=== PATIENT | female | born 1990 | race Caucasian/White ===

== ENCOUNTER 2019-07-27 12:36 | Observation (INO) | payer BC, MEDICAID ==
[~2019-07-27] VITALS: Ht 170.2 cm; Wt 113.9 kg
[2019-07-27 13:01] VITALS: BP 95/37
[2019-07-27 13:03] LABS: Basophils # (auto) 0.1 uL; Basophils % (auto) 0.7 % (0.0-2.0); Eosinophils # (auto) 0.1 uL; Eosinophils % (auto) 0.5 % (0.0-7.0); Hematocrit 38.7 % (36.0-46.0); Hemoglobin 13.1 g/dL (12.2-16.2); Lymphocytes # (auto) 2.5 uL; Lymphocytes % (auto) 20.2 % (10.0-50.0); Mean Corpuscular Hemoglobin 27.8 pg (28.0-32.0); Mean Corpuscular Hgb Conc. 33.9 g/dL (32.0-36.0); Mean Corpuscular Volume 81.9 fL (80.0-100.0); Monocytes # (auto) 0.7 uL; Monocytes % (auto) 5.6 % (0.0-12.0); Neutrophils # (auto) 9.1 uL; Nucleated Red Blood Cells % 0.1 %; Platelet Count (auto) 317 10^3/uL (140-450); Red Blood Cells 4.72 10^6/uL (4.0-5.20); White Blood Cell 12.5 10^3/uL (4.4-10.8)
[2019-07-27 13:24] LABS: Albumin 3.1 g/dL (3.4-5.0); BUN/Creatinine Ratio 8.6; Calcium 8.7 mg/dL (8.5-10.1); Potassium 3.6 mmol/L (3.5-5.1)
[2019-07-27 13:26] LABS: Bilirubin, Total 0.3 mg/dL (0.2-1.0); Total Protein 7.3 g/dL (6.4-8.2)
[2019-07-27] MEDS ORDERED: SODIUM CHLORIDE 0.9% 1,000 ML IV ONE (13:30)
[2019-07-27 14:12] LABS: INR < 0.93 (0.9-1.15); Partial Thromboplastin Time 27.7 sec (23.64-32.05)
== END 2019-07-27 15:25 | disposition left against medical advice (07) | DRG 833 ==
LOC: ER 12:36 → LDRP 14:10 → UNDOADMOB 14:26
PROVIDERS: ADMIT Obstetrics & Gynecology; ATTEND Obstetrics & Gynecology
DX: O20.0 Threatened abortion (principal); Z3A.18 18 weeks gestation of pregnancy
CPT/HCPCS: 36415; 59025; 76805; 80053; 84702; 85025; 85610; 85730; 99284; G0378; J7030

== ENCOUNTER 2019-08-13 20:05 | Inpatient (IN) | payer BC ==
[~2019-08-13] VITALS: Ht 167.6 cm; Wt 114.0 kg
[2019-08-13] MEDS ORDERED: SODIUM CHLORIDE 0.9% 1,000 ML IVB ONE (21:06)
[2019-08-13] MEDS ORDERED: ONDANSETRON HCL 4 MG/2 ML VIAL IV ONE (22:00)
[2019-08-13] MEDS ORDERED: MORPHINE SULF INJ 2 MG/ML SYRINGE 1ML IV ONE (22:00)
[2019-08-13 22:26] LABS: Basophils # (auto) 0 uL; Basophils % (auto) 0.3 % (0.0-2.0); Eosinophils # (auto) 0 uL; Eosinophils % (auto) 0.3 % (0.0-7.0); Hematocrit 32.9 % (36.0-46.0); Hemoglobin 10.4 g/dL (12.2-16.2); Lymphocytes # (auto) 1.9 uL; Lymphocytes % (auto) 12.9 % (10.0-50.0); Mean Corpuscular Hemoglobin 27.3 pg (28.0-32.0); Mean Corpuscular Hgb Conc. 31.4 g/dL (32.0-36.0); Mean Corpuscular Volume 86.8 fL (80.0-100.0); Monocytes # (auto) 0.7 uL; Monocytes % (auto) 4.9 % (0.0-12.0); Neutrophils # (auto) 11.9 uL; Neutrophils % (auto) 81.6 % (37.0-80.0); Platelet Count (auto) 404 10^3/uL (140-450); Red Blood Cells 3.79 10^6/uL (4.0-5.20); Red Cell Distribution Width 15.9 % (11.8-14.3); White Blood Cell 14.6 10^3/uL (4.4-10.8)
[2019-08-13 22:42] LABS: Albumin 3.4 g/dL (3.4-5.0); BUN/Creatinine Ratio 15.9; Calcium 7.9 mg/dL (8.5-10.1); Potassium 3.9 mmol/L (3.5-5.1)
[2019-08-13 22:45] LABS: Bilirubin, Total 0.5 mg/dL (0.2-1.0); Total Protein 7.2 g/dL (6.4-8.2)
[2019-08-13] MEDS ORDERED: fentaNYL CITRATE 100 MCG/2 ML VL IV ONE (23:45)
[2019-08-13] MEDS ORDERED: metroNIDAZOLE 500MG/100ML 100 ML IV ONE (23:45)
[2019-08-13] MEDS ORDERED: LEVOFLOXACIN 750MG 150 ML IV ONE (23:45)
[2019-08-14] MEDS ORDERED: ACETAMINOPHEN 325 MG TAB PO PRN (01:00)
[2019-08-14] MEDS ORDERED: ONDANSETRON HCL 4 MG/2 ML VIAL IV PRN (01:00)
[2019-08-14 02:56] LABS: Urine Bacteria NONE SEEN /hpf (None Seen); Urine Blood Negative /uL (Negative); Urine Specific Gravity 1.007 (1.001-1.035); Urine WBC 1 /hpf (0 - 5)
[2019-08-14 03:20] VITALS: BP 102/52
[2019-08-14] MEDS: metroNIDAZOLE 500MG/100ML 100 ML IV SCH ×3 (05:31→22:00)
--- NOTE | 2019-08-14 07:30 | NUR ---
Opening Shift Note Assumed care of patient, awake and alert. No S/S of distress/SOB or pain. Instructed on POC and to call for assist PRN, will continue to monitor for changes Q1hr and PRN.
[2019-08-14 08:00] VITALS: BP 117/66
[2019-08-14 09:21] VITALS: BP 117/66
[2019-08-14] MEDS: cefTRIAXone 1GM/50ML D5W 50 ML IV SCH (10:08)
[2019-08-14] MEDS: FAMOTIDINE 20 MG TAB PO SCH ×2 (10:08→22:00)
[2019-08-14 12:25] VITALS: BP 123/75
[2019-08-14] MEDS: SODIUM CHLORIDE 0.9% 1,000 ML IV SCH (13:57)
[2019-08-14 16:56] VITALS: BP 113/58
--- NOTE | 2019-08-14 19:30 | NUR ---
Assumed care of patient. Awake alert and oriented x4. Ambulatory. Very sweet and pleasant. Verbalized she is still proccessing her miscarriage and wants to go back to work to take her mind off of it..Iv to L Fa patent and infusing per orders. Skin clear. No distress noted.
[2019-08-14 22:25] VITALS: BP 119/74
[2019-08-14] MEDS: MORPHINE SULFATE 4 MG/ML SYR/VIAL IV PRN (23:40)
[2019-08-15] MEDS: TEMAZEPAM 15 MG CAP PO PRN ×2 (01:00→22:09)
--- NOTE | 2019-08-15 02:00 | NUR ---
IV to L FA removed due to causing pt pain. No inflammation noted. New IV started to L FA 20 G, tolerated well. Infusing per orders..Restoril given per pt request. No distress noted.
[2019-08-15 05:17] VITALS: BP 110/66
[2019-08-15] MEDS: metroNIDAZOLE 500MG/100ML 100 ML IV SCH ×3 (06:00→22:09)
[2019-08-15 06:25] LABS: Basophils # (auto) 0 uL; Basophils % (auto) 0.6 % (0.0-2.0); Eosinophils # (auto) 0.1 uL; Eosinophils % (auto) 2.2 % (0.0-7.0); Hemoglobin 9.8 g/dL (12.2-16.2); Lymphocytes # (auto) 2.5 uL; Lymphocytes % (auto) 41.4 % (10.0-50.0); Mean Corpuscular Hemoglobin 28.7 pg (28.0-32.0); Mean Corpuscular Hgb Conc. 32.8 g/dL (32.0-36.0); Mean Corpuscular Volume 87.5 fL (80.0-100.0); Monocytes # (auto) 0.3 uL; Monocytes % (auto) 4.9 % (0.0-12.0); Neutrophils # (auto) 3.1 uL; Neutrophils % (auto) 50.9 % (37.0-80.0); Nucleated Red Blood Cells % 0.1 %; Platelet Count (auto) 352 10^3/uL (140-450); Red Blood Cells 3.43 10^6/uL (4.0-5.20); White Blood Cell 6.1 10^3/uL (4.4-10.8)
[2019-08-15] MEDS: SODIUM CHLORIDE 0.9% 1,000 ML IV SCH (06:25)
[2019-08-15 06:35] LABS: Albumin 2.9 g/dL (3.4-5.0); Calcium 7.9 mg/dL (8.5-10.1); Magnesium 2.2 mg/dL (1.6-2.6); Potassium 3.6 mmol/L (3.5-5.1)
[2019-08-15 06:37] LABS: BUN/Creatinine Ratio 6.2
[2019-08-15 06:39] LABS: Bilirubin, Total 0.5 mg/dL (0.2-1.0); Total Protein 6.1 g/dL (6.4-8.2)
--- NOTE | 2019-08-15 07:40 | NUR ---
opening patient awake in bed, bed in lowest position, call light within reach no distress ntoed at this time
[2019-08-15] MEDS: cefTRIAXone 1GM/50ML D5W 50 ML IV SCH (09:00)
--- NOTE | 2019-08-15 09:00 | NUR ---
patient off unit for hida scan
[2019-08-15 09:15] VITALS: BP 100/52
[2019-08-15] MEDS: FAMOTIDINE 20 MG TAB PO SCH ×2 (10:00→22:09)
[2019-08-15 12:49] VITALS: BP 105/65
--- NOTE | 2019-08-15 13:07 | NUR ---
md lane rounding no new orders, awaiting surgical consult. The consult has been called to dr marte
[2019-08-15 14:33] LABS: Amylase 37 U/L (25-115); Lipase 171 U/L (73-393)
[2019-08-15 14:47] LABS: INR 0.95 (0.9-1.15)
--- NOTE | 2019-08-15 15:31 | NUR ---
Social Service consult regarding Advance Directive. Provided pt with information of Advance Directives and Durable Power of research attorney form. Pt verbalized understanding and refused information. Will contact Supervisor Packing for any further concerns or issues.
[2019-08-15 17:12] VITALS: BP 132/76
--- NOTE | 2019-08-15 17:30 | NUR ---
YONG CALLING WITH ORDERS CONSENT FOR LAP VS OPEN FR[place], CXR, EKG, URINE , TYPE AND SCREEN, PT/PTT LEVELS WILL PLACE ORDERS GIVEN, PER YONG HE WILL SPEAK TO PATIENT ABOUT PROCEDURE TOMORROW, AND SHE WILL BE ON SCHEDULE TOMORROW
[2019-08-15] MEDS: Ensure HIGH Protein Chocolate 8oz Bottle PO SCH (18:00)
[2019-08-15 19:10] LABS: INR 0.95 (0.9-1.15); Partial Thromboplastin Time 27.1 sec (23.64-32.05)
--- NOTE | 2019-08-15 19:11 | NUR ---
Opening Shift Note Assumed care of patient, awake and alert. No S/S of distress/SOB or pain. Instructed on POC and to call for assist PRN, will continue to monitor for changes Q1hr and PRN. Side rails up x2. Bed locked in lowest position. Call light within reach.
[2019-08-15 21:55] VITALS: BP 131/66
[2019-08-16] MEDS: SODIUM CHLORIDE 0.9% 1,000 ML IV SCH ×2 (03:22→15:45)
[2019-08-16 05:00] VITALS: BP 103/54
[2019-08-16] MEDS: metroNIDAZOLE 500MG/100ML 100 ML IV SCH ×3 (05:30→21:43)
[2019-08-16 06:29] LABS: Basophils # (auto) 0 uL; Basophils % (auto) 0.6 % (0.0-2.0); Eosinophils # (auto) 0.1 uL; Eosinophils % (auto) 1.8 % (0.0-7.0); Hematocrit 32.2 % (36.0-46.0); Hemoglobin 10.5 g/dL (12.2-16.2); Lymphocytes # (auto) 2.2 uL; Mean Corpuscular Hemoglobin 28.6 pg (28.0-32.0); Mean Corpuscular Hgb Conc. 32.7 g/dL (32.0-36.0); Mean Corpuscular Volume 87.3 fL (80.0-100.0); Monocytes # (auto) 0.3 uL; Monocytes % (auto) 4.8 % (0.0-12.0); Neutrophils # (auto) 3.4 uL; Neutrophils % (auto) 55.8 % (37.0-80.0); Nucleated Red Blood Cells % 0.1 %; Platelet Count (auto) 391 10^3/uL (140-450); Red Blood Cells 3.69 10^6/uL (4.0-5.20); Red Cell Distribution Width 15.7 % (11.8-14.3)
[2019-08-16 06:32] LABS: Potassium 3.3 mmol/L (3.5-5.1)
[2019-08-16 06:35] LABS: BUN/Creatinine Ratio 6.6
--- NOTE | 2019-08-16 07:21 | NUR ---
Endorsed care to day shift RN.
--- NOTE | 2019-08-16 07:43 | NUR ---
Opening Patient in bed, awake, bed in lowest position, call light within reach. No distress noted at this time. Will f/u with morning assessment. Pending today, physical therapy consult. Echocardiogram. Will continue to monitor this patient Addendum: 08/16/19 at 0746 by Rosemary Grullon RN Wrong patient Opening, this patient is awake, alert, oriented. In bed, bed is locked in lowest position, call light within reach. Has been NPO since midnight for the cholecystectomy with dr marte today. Will call preop around 8am to get estimated time for patient and family request. Checklist mostly done, consents are not signed per rosanna yesterday states he will speak with patient today prior to procedure. Will continue to monitor
[2019-08-16] MEDS: Ensure HIGH Protein Chocolate 8oz Bottle PO SCH ×3 (08:00→18:09)
[2019-08-16 08:11] VITALS: BP 107/62
[2019-08-16] MEDS: cefTRIAXone 1GM/50ML D5W 50 ML IV SCH (09:53)
[2019-08-16] MEDS: FAMOTIDINE 20 MG TAB PO SCH ×2 (09:53→21:43)
--- NOTE | 2019-08-16 12:00 | NUR ---
NUTRITION ASSESSMENT NOTES Please refer to link notes of nutrition screen form filed under the intervention section of the plan of care for further details. Est. Needs: 1650 kcal to 2250 kcal (15-20 kcal/kgBW), 59 gms to 71 gms pro (0.8-1.0 gms/kgBW). Will continue to monitor pertinent labs and reassess nutrient need prn Thank you. Addendum: 08/16/19 at [address] Amended: Links added.
[2019-08-16 12:31] VITALS: BP 118/73
--- NOTE | 2019-08-16 16:17 | NUR ---
MD FREEMAN ROUNDING NO NEW ORDERS, CONTINUING WITH PROCEDURE TOMORROW.
[2019-08-16 16:20] VITALS: BP 131/73
--- NOTE | 2019-08-16 18:00 | NUR ---
paging salbino per low potassium 3.3
--- NOTE | 2019-08-16 18:02 | NUR ---
nancy calling new orders for potassium given, will carry out as ordered.
[2019-08-16] MEDS ORDERED: POTASSIUM EFFERVESENT TAB 25 MEQ PO ONE (18:15)
[2019-08-16] MEDS: SOD CHL 0.9%/ KCL 20MEQ 1,000 ML IV SCH (18:33)
--- NOTE | 2019-08-16 19:30 | NUR ---
Opening Shift Note Assumed care of patient, awake and alert x4. Patient denies pain at this time. No S/S of distress or shortness of breath noted at this time. Instructed on plan of care and to call for assistance as needed. Bed is locked in lowest position, side rails x 2 are up, and call light is within reach.
[2019-08-16] MEDS: TEMAZEPAM 15 MG CAP PO PRN (21:43)
[2019-08-16 21:55] VITALS: BP 100/55
[2019-08-17 04:52] VITALS: BP 124/68
[2019-08-17] MEDS: MORPHINE SULFATE 4 MG/ML SYR/VIAL IV PRN ×2 (05:12→16:42)
[2019-08-17] MEDS: metroNIDAZOLE 500MG/100ML 100 ML IV SCH ×3 (05:12→22:12)
--- NOTE | 2019-08-17 05:27 | NUR ---
CHG BATH COMPLETED CHG bath and full linen change completed. Patient tolerated well. No S/S of distress noted at this time.
[2019-08-17 05:37] LABS: Basophils # (auto) 0 uL; Basophils % (auto) 0.9 % (0.0-2.0); Eosinophils # (auto) 0.1 uL; Eosinophils % (auto) 1.8 % (0.0-7.0); Hematocrit 32.1 % (36.0-46.0); Hemoglobin 10.4 g/dL (12.2-16.2); Lymphocytes # (auto) 2.1 uL; Lymphocytes % (auto) 39.1 % (10.0-50.0); Mean Corpuscular Hemoglobin 28.2 pg (28.0-32.0); Mean Corpuscular Hgb Conc. 32.5 g/dL (32.0-36.0); Mean Corpuscular Volume 86.7 fL (80.0-100.0); Monocytes # (auto) 0.4 uL; Monocytes % (auto) 7.2 % (0.0-12.0); Neutrophils # (auto) 2.7 uL; Platelet Count (auto) 375 10^3/uL (140-450); Red Blood Cells 3.71 10^6/uL (4.0-5.20); Red Cell Distribution Width 15.3 % (11.8-14.3); White Blood Cell 5.3 10^3/uL (4.4-10.8)
[2019-08-17 06:04] LABS: Calcium 8.1 mg/dL (8.5-10.1); Potassium 3.7 mmol/L (3.5-5.1)
[2019-08-17 06:07] LABS: Bilirubin, Total 1.3 mg/dL (0.2-1.0); Total Protein 6.3 g/dL (6.4-8.2)
--- NOTE | 2019-08-17 07:40 | NUR ---
Opening Patient awake in bed, bed in lowest position, call light within reach. No distress noted at this time. Will f/u with morning assessment. Patient is awaiting cholecystectomy with Dr Key today. Consents, checklist completed, awaiting procedure. Will continue to monitor this patient potassium 3.7 and increase from 3.3 will continue to monitor this patient
[2019-08-17] MEDS: Ensure HIGH Protein Chocolate 8oz Bottle PO SCH ×3 (08:00→18:00)
[2019-08-17 09:00] VITALS: BP 120/63
[2019-08-17] MEDS: cefTRIAXone 1GM/50ML D5W 50 ML IV SCH (09:00)
[2019-08-17] MEDS ORDERED: ceFAZolin 1GM/50ML 50 ML IV ONE (09:57)
[2019-08-17] MEDS: FAMOTIDINE 20 MG TAB PO SCH ×2 (10:00→22:12)
--- NOTE | 2019-08-17 10:30 | NUR ---
pt off unit taken to preop
[2019-08-17] MEDS ORDERED: ROCURONIUM 10MG/ML 10ML VIAL IV ONE (11:55)
[2019-08-17] MEDS ORDERED: PHENYLEPHRINE HCL 10 MG/ML VL IV ONE (11:55)
[2019-08-17] MEDS ORDERED: GLYCOPYRROLATE 0.2 MG/ML 1ML VIAL IV ONE (11:55)
[2019-08-17] MEDS ORDERED: NEOSTIGMINE 1 MG/ML INJ (10mg/10ML VIAL) IV ONE (11:55)
[2019-08-17] MEDS ORDERED: MIDAZOLAM HCL 1MG/1ML-2 ML VIAL ONE (12:11)
[2019-08-17] MEDS ORDERED: fentaNYL CITRATE 100 MCG/2 ML VL ONE (12:11)
[2019-08-17] MEDS ORDERED: SUCCINYLCHOLINE CHLORIDE 20 MG/ML 10ML VIAL IV ONE (12:11)
[2019-08-17] MEDS ORDERED: MEPERIDINE HCL (50 MG/ML) 1 ML VIAL ONE (12:11)
[2019-08-17] MEDS ORDERED: DexAMETHasone SOD PHOS 10MG/1ML VIAL INJ ONE (12:48)
[2019-08-17] MEDS ORDERED: PROPOFOL 10 MG/ML 20 ML IV ONE (12:48)
[2019-08-17] MEDS ORDERED: METOCLOPRAMIDE HCL 5MG/ml INJ 2ml VIAL ONE (12:49)
[2019-08-17] MEDS ORDERED: KETOROLAC TROMETH 30 MG/ML 1ML VIAL IV ONE (13:15)
[2019-08-17] MEDS ORDERED: ePHEDrine SULFATE 50 MG/ML AMP IV PRN (13:15)
[2019-08-17] MEDS ORDERED: MIDAZOLAM HCL 1MG/1ML-2 ML VIAL IV PRN (13:15)
[2019-08-17] MEDS ORDERED: HYDROmorphone HCL 2 MG/ML VL IV PRN (13:15)
[2019-08-17] MEDS ORDERED: MORPHINE SULFATE 4 MG/ML SYR/VIAL IV PRN (13:15)
[2019-08-17] MEDS ORDERED: ONDANSETRON HCL 4 MG/2 ML VIAL IV PRN (13:15)
[2019-08-17] MEDS ORDERED: LABETALOL HCL 5 MG/ML 4ML SYRINGE IV PRN (13:15)
[2019-08-17] MEDS: SOD CHL 0.9%/ KCL 20MEQ 1,000 ML IV SCH (14:15)
[2019-08-17] MEDS ORDERED: LIDOCAINE 1% HCL (LOCAL ANESTH.) INJ 20ML MDV ONE (14:21)
[2019-08-17 17:00] VITALS: BP 116/79
[2019-08-17] MEDS: HYDROcodone-ACET 5/325MG TAB PO PRN (19:37)
--- NOTE | 2019-08-17 21:30 | NUR ---
AMBULATED Patient ambulated around the unit with stand by assistance. Patient tolerated well. Patient is now back in bed with even and unlabored respirations. Patient denies pain at this time.
[2019-08-17 22:19] VITALS: BP 100/69
[2019-08-17] MEDS: TEMAZEPAM 15 MG CAP PO PRN (22:57)
[2019-08-18] MEDS: SOD CHL 0.9%/ KCL 20MEQ 1,000 ML IV SCH (00:01)
[2019-08-18] MEDS: HYDROcodone-ACET 5/325MG TAB PO PRN ×2 (03:12→11:29)
[2019-08-18 05:36] VITALS: BP 116/67
[2019-08-18] MEDS: metroNIDAZOLE 500MG/100ML 100 ML IV SCH ×3 (05:51→21:34)
[2019-08-18 07:30] LABS: Basophils # (auto) 0 uL; Basophils % (auto) 0.1 % (0.0-2.0); Eosinophils # (auto) 0 uL; Hematocrit 31.8 % (36.0-46.0); Hemoglobin 10.4 g/dL (12.2-16.2); Lymphocytes # (auto) 1.2 uL; Lymphocytes % (auto) 12.8 % (10.0-50.0); Mean Corpuscular Hemoglobin 28.5 pg (28.0-32.0); Mean Corpuscular Hgb Conc. 32.8 g/dL (32.0-36.0); Monocytes # (auto) 0.5 uL; Monocytes % (auto) 4.8 % (0.0-12.0); Neutrophils # (auto) 7.8 uL; Neutrophils % (auto) 82.3 % (37.0-80.0); Nucleated Red Blood Cells % 0.1 %; Platelet Count (auto) 412 10^3/uL (140-450); Red Blood Cells 3.65 10^6/uL (4.0-5.20); Red Cell Distribution Width 15.4 % (11.8-14.3); White Blood Cell 9.5 10^3/uL (4.4-10.8)
--- NOTE | 2019-08-18 07:40 | NUR ---
Opening Note Received report from shift stacker RN. Patient is awake, alert and oriented x4. Patient is on room air, respirations even and unlabored. Patient denies pain at this time. Patient has 3 incisions to abdominal area, clean dry and intact. Patient has SCD bilateral lower extremities. Reviewed of plan of care with patient, patient verbalized understanding. Bed in low and locked position, lisa light within reach. Will continue to monitor Q1 hour and PRN.
[2019-08-18 07:46] LABS: Albumin 3.2 g/dL (3.4-5.0); Calcium 8.5 mg/dL (8.5-10.1); Potassium 3.9 mmol/L (3.5-5.1)
[2019-08-18 07:52] LABS: Bilirubin, Total 2.4 mg/dL (0.2-1.0); Total Protein 6.6 g/dL (6.4-8.2)
[2019-08-18] MEDS: Ensure HIGH Protein Chocolate 8oz Bottle PO SCH ×3 (08:00→18:00)
[2019-08-18 09:00] VITALS: BP 100/51
[2019-08-18] MEDS: FAMOTIDINE 20 MG TAB PO SCH ×2 (09:02→21:34)
[2019-08-18] MEDS: cefTRIAXone 1GM/50ML D5W 50 ML IV SCH (09:02)
--- NOTE | 2019-08-18 10:30 | NUR ---
Patient ambulated in hallway
--- NOTE | 2019-08-18 11:30 | NUR ---
Pain patient complains of abdominal pain 7/10 and is requesting pain medication. Will medicate per orders. Will continue to monitor Q1 hour and PRN.
[2019-08-18 13:00] VITALS: BP_SYST 119; BP_DIAS 68; BP_DIAS 77
--- NOTE | 2019-08-18 14:33 | NUR ---
Nutrition Follow-up Notes Wt.: 112.6 kg sa of yesterday. Pt's with immediate family members at bedside, denies any discomfort during rounds this morning. 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 Pt's s/p lap tang yesterday, currently on Clear Liquid diet, tolerates oral diet with good PO intake aeb 100% ave. consumed meals (x2) since last night. Est. Needs: 1650 kcal to 2250 kcal (15-20 kcal/kgBW), 59 gms to 71 gms pro (0.8-1.0 gms/kgBW). Will continue to monitor pertinent labs and reassess nutrient need prn Labs: Cl 111 H, Tot jo-ann 2.4 H, AST 223 H, ALT 304 H, ALP 298 H, Alb 3.2 L Skin: Alex scale 21, low risk, pt's skin intact per sales order specialist. GI: Pt's no bowel activity since 08/13/18 per sales order specialist. PES: Altered nutrition related lab values r/t current/chronic medical condition aeb hyperchloremia, hypokalemia, low BUN, elev. LFTs, hypocalcemia and mod hypoalbuminemia Obesity r/t food intake more than body requirement aeb 189% IBW, BMI 39.7 kg/m2 and increased body adiposity Will continue to monitor PO intake, skin status, pertinent labs and weight trend. F/u in 2 to 3 days. Rec.: 1.) Advance gradually to oral diet (Soft Low Fat diet) when medically appropriate. 2.) If Albumin continues trending down, consider Prostat 1 pkt BID.Continue close supervision during meals. 3.) Refer pt to RD for further nutrition education and weight monitoring upon discharge. 4.) Continue current plan of care.
[2019-08-18 17:00] VITALS: BP 116/72
--- NOTE | 2019-08-18 19:03 | NUR ---
Closing Note Report given to stone planer RN. No signs or symptoms of distress noted at this time. Family at bedside
--- NOTE | 2019-08-18 19:50 | NUR ---
Opening Shift Note Assumed care of patient, awake and alert. No S/S of distress/SOB or pain. Instructed on POC and to call for assist PRN. Bed in lowest locked position, call light within reach, side rails up x2. Will continue to monitor for changes Q1hr and PRN.
[2019-08-18] MEDS: TEMAZEPAM 15 MG CAP PO PRN (21:35)
[2019-08-18 22:15] VITALS: BP 113/58
[2019-08-19] MEDS: SOD CHL 0.9%/ KCL 20MEQ 1,000 ML IV SCH (03:20)
[2019-08-19 05:47] VITALS: BP 110/64
[2019-08-19] MEDS: metroNIDAZOLE 500MG/100ML 100 ML IV SCH ×2 (06:11→13:23)
[2019-08-19 07:01] LABS: Albumin 3.1 g/dL (3.4-5.0); Potassium 3.5 mmol/L (3.5-5.1)
[2019-08-19 07:05] LABS: BUN/Creatinine Ratio 6.3; Bilirubin, Total 0.6 mg/dL (0.2-1.0); Total Protein 6.3 g/dL (6.4-8.2)
[2019-08-19] MEDS: Ensure HIGH Protein Chocolate 8oz Bottle PO SCH ×2 (08:00→12:00)
--- NOTE | 2019-08-19 08:30 | NUR ---
Opening Shift Note Assumed care of patient, awake, alert and oriented. No S/S of distress/SOB or pain. Bed in low/locked position, bed rails up x2. Instructed on POC and to call for assist PRN with call light within reach. Will continue to monitor for changes Q1hr and PRN.
[2019-08-19 09:00] VITALS: BP 124/75
[2019-08-19] MEDS: cefTRIAXone 1GM/50ML D5W 50 ML IV SCH (09:30)
[2019-08-19] MEDS: FAMOTIDINE 20 MG TAB PO SCH (09:30)
[2019-08-19 13:00] VITALS: BP 133/79
--- NOTE | 2019-08-19 15:41 | NUR ---
Discharge instructions given as ordered. Encourage to follow up with PMD as instructed. All questions and concerns addressed. Patient verbalized understanding. IV removed with catheter intact, pressure dressing applied. Patient taken to vehicle via wheelchair with all personal belongings, accompanied by staff and family member. No distress noted at time of departure.
== END 2019-08-19 15:40 | disposition home or self-care (01) | DRG 418 ==
LOC: EDBD 20:05 → ER 20:06 → OVERFLOW 20:07 → WEST WING 08-14 01:35
PROVIDERS: ADMIT Nurse Practitioner; ATTEND Internal Medicine Pulmonary Disease
PROC: 0FT44ZZ Resection of Gallbladder, Percutaneous Endoscopic Approach (ICD-10-PCS; principal; 2019-08-17 12:13)
DX: K80.12 Calculus of gallbladder with acute and chronic cholecystitis without obstruction (principal); E44.0 Moderate protein-calorie malnutrition; Z68.41 Body mass index [BMI] 40.0-44.9, adult; D63.8 Anemia in other chronic diseases classified elsewhere; E28.2 Polycystic ovarian syndrome; E66.01 Morbid (severe) obesity due to excess calories; I10 Essential (primary) hypertension; K76.0 Fatty (change of) liver, not elsewhere classified; K76.89 Other specified diseases of liver; Z82.49 Family history of ischemic heart disease and other diseases of the circulatory system; Z85.72 Personal history of non-Hodgkin lymphomas; Z79.899 Other long term (current) drug therapy
CPT/HCPCS: 36415; 71045; 76705; 76856; 78226; 80048; 80053; 81001; 81025; 82150; 83690; 83735; 84443; 84702; 85025; 85610; 85730; 86850; 86900; 86901; 87040; 87081; 93005; 94761; 96361; 96365; 96375; G0378; J0330; J0690; J0696; J1100; J1885; J1956; J2001; J2250; J2405; J2704; J3490